=== PATIENT | male | born 1980 | race Caucasian/White ===

== ENCOUNTER 2019-04-27 21:25 | Emergency (ER) | payer SELFPAY ==
[2019-04-27] MEDS ORDERED: Lidocaine 2% with EPINEPHrine 1:200,000 20 ML SDV ONE (22:06)
--- NOTE | 2019-04-27 22:23 | EDM.PDOC ---
ED HPI GENERAL MEDICAL PROBLEM - General Chief Complaint: Lower Extremity Injury/Pain Stated Complaint: LACERATION Time Seen by Provider: 04/27/19 22:16 Source of Information: Reports: Patient History Limitations: Reports: No Limitations - History of Present Illness INITIAL COMMENTS - FREE TEXT/NARRATIVE: Patient is a 38-year-old gentleman who presents to the emergency department this evening with a laceration to his left lower extremity. Patient states that he was playing in the playground with his child and accidentally cut leg on sharp plastic. Patient states this happened just prior to arrival. Patient is not up-to-date for tetanus. Patient denies any other injury. Onset: Today Duration: Minutes: Location: Reports: Lower Extremity, Left Severity: Mild Improves with: Reports: None Worsens with: Reports: None Context: Reports: Trauma Associated Symptoms: Reports: No Other Symptoms Left Lower Leg Pain Score (Numeric/FACES): 2 - Related Data Allergies Allergy/AdvReac Type Severity Reaction Status Date / Time No Known Allergies Allergy Verified 04/27/19 21:52 Review of Systems - Review of Systems Review Of Systems: ROS reveals no pertinent complaints other than HPI. Constitutional: Reports: No Symptoms Eyes: Reports: No Symptoms Ears: Reports: No Symptoms Nose: Reports: No Symptoms Mouth/Throat: Reports: No Symptoms Respiratory: Reports: No Symptoms Cardiovascular: Reports: No Symptoms GI/Abdominal: Reports: No Symptoms Genitourinary: Reports: No Symptoms Musculoskeletal: Reports: Leg Pain Skin: Reports: Wound (Laceration to anterior tib-fib) Neurological: Reports: No Symptoms Psychiatric: Reports: No Symptoms ED EXAM, GENERAL - Physical Exam Exam: See Below Exam Limited By: No Limitations General Appearance: Alert, WD/WN, No Apparent Distress Throat/Mouth: Normal Inspection, Normal Oropharynx, No Airway Compromise Head: Atraumatic, Normocephalic Respiratory/Chest: No Respiratory Distress Back Exam: Normal Inspection Extremities: Leg Pain (Mid anterior tib-fib) Psychiatric: Normal Affect, Normal Mood Skin Exam: Warm, Dry, Normal Color, No Rash, Wound/Incision (There is a 3 cm linear laceration at the right mid anterior tib-fib.) ED TRAUMA EXTREMITY PROCEDURES - Laceration/Wound Repair Right Anterior Midline Leg Lac/Wound Length In cm: 3 Appearance: Superficial Distal NVT: Neuro & Vascular Intact, No Tendon Injury Anesthetic Type: Local Local Anesthesia - Lidocaine (Xylocaine): 1% with EPI Local Anesthetic Volume: 2cc Skin Prep: Providone-Iodine (Betadine) Closed With: Joshua Sterile Dressing Applied: Nurse Tetanus Status Addressed: Yes Progress/Comments: 9 Joshua applied Course - Vital Signs Last Recorded V/S: Last Vital Signs Temp 97.4 F 04/27/19 21:55 Pulse 108 H 04/27/19 21:55 Resp 20 04/27/19 21:55 BP 140/90 04/27/19 21:55 Pulse Ox 94 L 04/27/19 21:55 - Orders/Labs/Meds Meds: Medications Discontinued Medications Generic Name Dose Route Start Last Admin Trade Name Be PRN Reason Stop Dose Admin Lidocaine/Epinephrine Confirm 04/27/19 22:06 Xylocaine-Mpf 2%-Epi 1:200,000 Administered 04/27/19 22:07 Dose 20 ml .ROUTE .STK-MED ONE - Re-Assessments/Exams Free Text/Narrative Re-Assessment/Exam: 04/27/19 22:28 Patient afebrile, vital signs stable, tolerated procedure well. Tetanus given. Patient follow-up with PCP for staple removal in 10 days Departure - Departure Time of Disposition: 22:23 Disposition: Home, Self-Care 01 Condition: Good Clinical Impression: Laceration - Discharge Information Instructions: Laceration Care, Adult, [id number], Sutured Wound Care, Easy-to -Read Referrals: Radha Mackenzie PA-C [Primary Care Provider] - Forms: ED Department Discharge Additional Instructions: Follow-up with PCP in next 10 days for staple removal. Return to emergency department sooner if symptoms continue or worsen. - Assessment/Plan Assessment:: Laceration repair Plan: Follow-up with PCP
[2019-04-27] MEDS ORDERED: Diphtheria,Pertussis(Acell),Tetanus Vaccine 0.5 ML SDV IM ONE (22:49)
== END 2019-04-27 23:00 | disposition home or self-care (01) ==
LOC: KA.ED 21:25
DX: S81.811A Laceration without foreign body, right lower leg, initial encounter (principal); Z23 Encounter for immunization; W26.8XXA Contact with other sharp object(s), not elsewhere classified, initial encounter
CPT/HCPCS: 12002; 90471; 90715; 99282

== ENCOUNTER 2019-08-11 14:48 | Emergency (ER) | payer SELFPAY ==
[2019-08-11] MEDS ORDERED: Ondansetron 4 MG/2 ML SDV ONE (15:36)
[2019-08-11] MEDS ORDERED: Sodium Chloride 0.9% 1,000 ML ONE (15:37)
[2019-08-11] MEDS ORDERED: Ondansetron 4 MG/2 ML SDV IVPUSH ONE (15:37)
[2019-08-11] MEDS ORDERED: Sodium Chloride 0.9% 1,000 ML IV ONE (15:37)
[2019-08-11 16:05] LABS: ANION GAP 11.1 mmol/L (5-15); CHLORIDE,CL 104 mmol/L (98-115); SODIUM,NA 139 mmol/L (136-145)
--- NOTE | 2019-08-11 16:05 | EDM.PDOC ---
ED HPI GENERAL MEDICAL PROBLEM - General Chief Complaint: Abdominal Pain Stated Complaint: SEVERE STOMACH PAIN Time Seen by Provider: 08/11/19 15:30 Source of Information: Reports: Patient History Limitations: Reports: No Limitations - History of Present Illness INITIAL COMMENTS - FREE TEXT/NARRATIVE: 39-year-old male comes into the emergency room with complaint of 2 day history complaints of abdominal pain, nausea. His pain goes across his lower abdomen and umbilicus. He denies diarrhea. He had a bowel movement yesterday. He has not had appetite. He denies fevers or chills or recent illnesses. He describes the pain as an ache. He feels he could vomit but has not. His pain has not improved over the last 2 days. Onset: Gradual Onset Date: 08/10/19 Duration: Hour(s): (36hrs), Improving Location: Reports: Abdomen Quality: Reports: Ache Severity: Moderate Improves with: Reports: None Worsens with: Reports: None Associated Symptoms: Reports: Loss of Appetite, Nausea/Vomiting. Denies: Fever/ Chills Upper Abdomen Pain Score (Numeric/FACES): 4 - Related Data Allergies Allergy/AdvReac Type Severity Reaction Status Date / Time No Known Allergies Allergy Verified 08/11/19 15:24 Home Meds: Home Meds Escitalopram [Lexapro] 20 mg PO DAILY 04/27/19 [History] LORazepam 0.5 mg PO DAILY 04/27/19 [History] Omeprazole 20 mg PO DAILY 04/27/19 [History] hydroCHLOROthiazide [Hydrochlorothiazide] 25 mg PO DAILY 04/27/19 [History] Ondansetron [Zofran ODT] 4 mg PO Q6H PRN #4 tab.dis 08/11/19 [Rx] Past Medical History HEENT History: Reports: Impaired Vision Cardiovascular History: Reports: Hypertension Gastrointestinal History: Reports: GERD, Other (See Below) Other Gastrointestinal History: frequent gastroenteritis Psychiatric History: Reports: Anxiety, Depression, Panic Attack - Infectious Disease History Infectious Disease History: Reports: Chicken Pox - Past Surgical History HEENT Surgical History: Reports: Tonsillectomy Cardiovascular Surgical History: Reports: None GI Surgical History: Reports: Hernia, Inguinal Social & Family History - Tobacco Use Smoking Status *Q: Current Every Day Smoker Years of Tobacco use: 1 Packs/Tins Daily: 1.5 - Caffeine Use Caffeine Use: Reports: Coffee, Soda Other Caffeine Use: regular - Recreational Drug Use Recreational Drug Use: Yes Recreational Drug Type: Reports: Cocaine, Marijuana/Hashish, Methamphetamine Other Recreational Drug Type: hasnt used in 18 years Recreational Drug Use Frequency: Not Used In Over 6 Months ED ROS GENERAL - Review of Systems Review Of Systems: See Below Constitutional: Reports: Decreased Appetite. Denies: Fever, Chills HEENT: Reports: No Symptoms Respiratory: Reports: No Symptoms Cardiovascular: Reports: Blood Pressure Problem Endocrine: Reports: No Symptoms GI/Abdominal: Reports: Abdominal Pain, Anorexia, Nausea. Denies: Black Stool, Bloody Stool, Constipation, Diarrhea, Vomiting : Denies: Discharge, Dysuria, Hematuria Musculoskeletal: Reports: No Symptoms Skin: Reports: No Symptoms Neurological: Reports: No Symptoms Psychiatric: Reports: No Symptoms Hematologic/Lymphatic: Reports: No Symptoms Immunologic: Reports: No Symptoms ED EXAM, GI/ABD - Physical Exam Exam: See Below Exam Limited By: No Limitations General Appearance: Alert, WD/WN, No Apparent Distress Ears: Normal External Exam, Normal TMs Nose: Normal Inspection Throat/Mouth: Normal Voice, No Airway Compromise Head: Atraumatic, Normocephalic Neck: Normal Inspection Respiratory/Chest: No Respiratory Distress, Lungs Clear Cardiovascular: Regular Rate, Rhythm GI/Abdominal Exam: No Organomegaly, No Distention, Tender (Right lower quadrant left lower quadrant and umbilicus) Back Exam: Normal Inspection, Full Range of Motion. No: CVA Tenderness (L), CVA Tenderness (R), Paraspinal Tenderness Extremities: Normal Inspection, Normal Range of Motion, Non-Tender, No Pedal Edema, Normal Capillary Refill Neurological: Alert, Oriented, CN II-XII Intact, Normal Cognition Psychiatric: Normal Affect, Normal Mood Skin Exam: Warm, Dry, Intact, Normal Color, No Rash Lymphatic: No Adenopathy Course - Vital Signs Last Recorded V/S: Last Vital Signs Temp 99.4 F 08/11/19 15:05 Pulse 107 H 08/11/19 15:05 Resp 18 08/11/19 15:05 BP 156/95 H 08/11/19 15:45 Pulse Ox 97 08/11/19 15:05 - Orders/Labs/Meds Orders: Active Orders 24 hr Category Date Time Status CULTURE URINE [RM] Stat Lab 08/11/19 16:53 Ordered Sodium Chloride 0.9% [Normal Saline] 50 ml Med 08/11/19 16:15 Active IV ASDIRECTED Medication Orders Sodium Chloride (Normal Saline) 50 mls @ 200 mls/hr IV ASDIRECTED YOGESH Last Admin: 08/11/19 16:34 Dose: 200 mls/hr Labs: Laboratory Tests 08/11/19 08/11/19 08/11/19 Range/Units 15:05 15:05 16:30 WBC 8.15 (5.00-10.00) 10^3/uL RBC 5.53 (4.50-6.00) 10^6/uL Hgb 17.1 H (13.0-17.0) g/dL Hct 48.5 (40.0-52.0) % MCV 87.7 (82.0-92.0) fL MCH 30.9 (27.0-31.0) pg MCHC 35.3 (32.0-36.0) g/dL RDW 11.8 (11.5-14.5) % Plt Count 209 (150-400) 10^3/uL MPV 10.2 (7.4-10.4) fL Immature Gran % (Auto) 0.2 (0.0-5.0) % Neut % (Auto) 62.7 (50.0-70.0) % Lymph % (Auto) 26.7 (20.0-40.0) % Lea % (Auto) 9.0 H (2.0-8.0) % Eos % (Auto) 1.2 (1.0-3.0) % Baso % (Auto) 0.2 (0.0-1.0) % Immature Gran # (Auto) 0.02 (0.00-0.50) 10^3/uL Neut # (Auto) 5.10 (2.50-7.00) 10^3/uL Lymph # (Auto) 2.18 (1.00-4.00) 10^3/uL Lea # (Auto) 0.73 (0.10-0.80) 10^3/uL Eos # (Auto) 0.10 (0.10-0.30) 10^3/uL Baso # (Auto) 0.02 (0.00-0.10) 10^3/uL Sodium 139 (136-145) mmol/L Potassium 4.0 (3.3-5.3) mmol/L Chloride 104 (98-115) mmol/L Carbon Dioxide 27.9 (21.0-32.0) mmol/L Anion Gap 11.1 (5-15) mmol/L BUN 17 (6-25) mg/dL Creatinine 0.94 (0.51-1.17) mg/dL Est Cr Clr Drug Dosing 127.35 mL/min Estimated GFR (MDRD) > 60 mL/min Glucose 95 (75 - 99) mg/dL Calcium 9.2 (8.7-10.3) mg/dL Specimen Type Urincc Urine Color Yellow (YELLOW) Urine Appearance Clear (CLEAR) Urine pH 7.5 (5.0-9.0) Ur Specific [place] 1.020 (1.005-1.030) Urine Protein Negative (NEGATIVE) mg/dL Urine Glucose (UA) Negative (NEGATIVE) mg/dL Urine Ketones Negative (NEGATIVE) mg/dL Urine Occult Blood Negative (NEGATIVE) Urine Nitrite Negative (NEGATIVE) Urine Bilirubin Negative (NEGATIVE) Urine Urobilinogen 0.2 (0.2-1.0) E.U./dL Ur Leukocyte Esterase Negative (NEGATIVE) Urine RBC 0-5 (0-5) /HPF Urine WBC 10-20 H (0-5) /HPF Ur Epithelial Cells Occasional /LPF Urine Bacteria Rare (NONE TO FEW) /HPF Meds: Medications Generic Name Dose Route Start Last Admin Trade Name Freq PRN Reason Stop Dose Admin Sodium Chloride 50 mls @ 200 mls/hr 08/11/19 16:15 08/11/19 16:34 Normal Saline IV 200 mls/hr ASDIRECTED YOGESH Administration Discontinued Medications Generic Name Dose Route Start Last Admin Trade Name Freq PRN Reason Stop Dose Admin Sodium Chloride Confirm 08/11/19 15:37 Normal Saline Administered 08/11/19 15:38 Dose 1,000 mls @ as directed .ROUTE .STK-MED ONE Sodium Chloride 1,000 mls @ 999 mls/hr 08/11/19 15:37 08/11/19 15:37 Normal Saline IV 08/11/19 16:37 999 mls/hr .BOLUS ONE Administration Iopamidol 100 ml 08/11/19 16:12 08/11/19 16:34 Isovue-370 (76%) IV 08/11/19 16:13 100 ml ONETIME ONE Administration Ondansetron HCl Confirm 08/11/19 15:36 Zofran Administered 08/11/19 15:37 Dose 4 mg .ROUTE .STK-MED ONE Ondansetron HCl 4 mg 08/11/19 15:37 08/11/19 15:37 Zofran IVPUSH 08/11/19 15:38 4 mg ONETIME ONE Administration - Radiology Interpretation Free Text/Narrative:: CT abdomen and pelvis with IV contrast Findings The appendix is normal The appendix is air-filled and also filled with what appears to be tiny appendicolith Liver and spleen, kidneys and adrenals, pancreas and aorta otherwise are unremarkable Gallbladder is not distended the pelvis shows no mass or adenopathy Impression No evidence of appendicitis CT Results Date: 08/11/19 CT Results Time: 16:49 - Re-Assessments/Exams Free Text/Narrative Re-Assessment/Exam: 08/11/19 17:06 Patient reports his nausea is resolved and is feeling better after 1 L of fluids and 4 mg IV Zofran Departure - Departure Time of Disposition: 17:07 Disposition: Home, Self-Care 01 Condition: Good Clinical Impression: Abdominal pain Qualifiers: Abdominal location: lower abdomen, unspecified Qualified Code(s): R10.30 - Lower abdominal pain, unspecified - Discharge Information Prescriptions: Ondansetron [Zofran ODT] 4 mg PO Q6H PRN #4 tab.dis PRN Reason: Nausea Referrals: Radha Mackenzie PA-C [Primary Care Provider] - Forms: ED Department Discharge - My Orders Last 24 Hours: My Active Orders 08/11/19 16:15 Sodium Chloride 0.9% [Normal Saline] 50 ml IV ASDIRECTED 08/11/19 16:53 CULTURE URINE [RM] Stat - Assessment/Plan Last 24 Hours: My Active Orders 08/11/19 16:15 Sodium Chloride 0.9% [Normal Saline] 50 ml IV ASDIRECTED 08/11/19 16:53 CULTURE URINE [RM] Stat Assessment:: Lower abdominal pain improved Plan: 1. Rest 2. Drink plenty of fluids 3. No work this weekend 4. Follow-up with primary care next week if symptoms persist. Return back to the ER if abdominal pain becomes severe, fever above 101, nausea vomiting
[2019-08-11] MEDS ORDERED: Iopamidol 755 Mg/ML 100 ML Bottle IV ONE (16:12)
[2019-08-11] MEDS ORDERED: Sodium Chloride 0.9% 50 ML IV SCH (16:15)
--- NOTE | 2019-08-11 16:54 | CT ---
[id number] CT/CT Abdomen Pelvis W IV EXAM: CT Abdomen Pelvis W IV CLINICAL DATA: SUSPECTED APPENDICITIS COMPARISON: NO PREVIOUS SIMILAR EXAM IS AVAILABLE. FINDINGS: The appendix is normal. The appendix is seen on images 102 through 110, series 2. The appendix is air-filled and also filled with what appears to be tiny appendicolith. The liver and spleen, kidneys and adrenals, pancreas and aorta otherwise are unremarkable. The gallbladder is not distended. The pelvis shows no mass or adenopathy. IMPRESSION: NO EVIDENCE OF APPENDICITIS Sam Hughes MD 08/11/19 [id number] Thank you for allowing us to participate in the care of your patient.
[2019-08-11] MEDS ORDERED: Acetaminophen 500 MG Tab PO ONE (17:09)
[2019-08-11] MEDS ORDERED: Ondansetron 4 MG Tab.DIS PO SCH ×2 (17:15→17:16)
[2019-08-11] MEDS ORDERED: Ondansetron 4 MG Tab.DIS ONE (17:15)
== END 2019-08-11 17:20 | disposition home or self-care (01) ==
LOC: KA.ED 14:48
DX: R10.31 Right lower quadrant pain (principal); R10.32 Left lower quadrant pain; R10.33 Periumbilical pain; R11.2 Nausea with vomiting, unspecified; I10 Essential (primary) hypertension; K21.9 Gastro-esophageal reflux disease without esophagitis; F41.9 Anxiety disorder, unspecified; F17.210 Nicotine dependence, cigarettes, uncomplicated; F32.9 Major depressive disorder, single episode, unspecified; Z79.899 Other long term (current) drug therapy; Z98.890 Other specified postprocedural states
CPT/HCPCS: 36415; 74177; 80048; 81001; 85025; 87086; 96361; 96374; 99284; A9270; J2405; J7030; J7050; Q9967